=== PATIENT | female | born 1965 | race Two or more races ===

== ENCOUNTER 2020-12-19 05:01 | Emergency (ER) | payer OTHER ==
[~2020-12-19] VITALS: Ht 160 cm; Wt 72.6 kg
[~2020-12-19 05:01] MED LIST: SYNTHROID50 MCG
[2020-12-19] MEDS ORDERED: DICLOFENAC SODI75 MG PO (06:10)
== END 2020-12-19 06:25 | disposition home or self-care (01) ==
LOC: ER 05:01
DX: R07.9 Chest pain, unspecified (principal); M94.0 Chondrocostal junction syndrome [Tietze]

== ENCOUNTER 2022-06-13 05:15 | Emergency (ER) | payer OTHER ==
[~2022-06-13] VITALS: Ht 160 cm; Wt 72.6 kg
[~2022-06-13 05:15] MED LIST changes: +DICLOFENAC SODI75 MG PO
[2022-06-13] MEDS ORDERED: AMLODIPINE BESYL5 MG PO (05:24)
[2022-06-13] MEDS ORDERED: METOPROLOL SUCC50 MG PO (05:24)
[2022-06-13] MEDS ORDERED: SIMVASTATIN20 MG PO (05:24)
[2022-06-13] MEDS ORDERED: METFORMIN HCL500 M1 PO (05:24)
[2022-06-13] MEDS ORDERED: IRBESARTAN300 MG PO (05:25)
== END 2022-06-13 12:54 | disposition home or self-care (01) ==
LOC: ER 05:15
DX: R10.9 Unspecified abdominal pain (principal); R11.10 Vomiting, unspecified; I10 Essential (primary) hypertension; E11.9 Type 2 diabetes mellitus without complications; R42 Dizziness and giddiness

== ENCOUNTER 2023-10-24 06:44 | Emergency (ER) | payer OTHER ==
[~2023-10-24] VITALS: Ht 160 cm; Wt 71.7 kg
[~2023-10-24 06:44] MED LIST changes: +AMLODIPINE BESYL5 MG PO; +IRBESARTAN300 MG PO; +METFORMIN HCL500 M1 PO; +METOPROLOL SUCC50 MG PO; +SIMVASTATIN20 MG PO
[2023-10-24] MEDS ORDERED: PROMETHAZINE HCL 50 MG/ML AMPUL IM STA (07:41)
[2023-10-24] MEDS ORDERED: 0.9 % SODIUM CHLORIDE 500 ML IV ONE (07:45)
[2023-10-24 08:08] LABS: HEMATOCRIT 37.6 % (36.0-45.00); HEMOGLOBIN 12.4 g/dL (12.0-15.00); MEAN CELL VOLUME 76.5 fL (80.00-100.00); MEAN CORPUSCULAR HEMOGLOBIN 25.2 pg (27.00-32.0); MEAN CORPUSCULAR HGB CONC 32.9 g/dl (32.0-36.0); PLATELET COUNT 167 K/uL (150-450); RED BLOOD COUNT 4.92 M/uL (4.00-6.00); RED CELL DISTRIBUTION WIDTH 13.3 % (11.5-14.5)
[2023-10-24 08:41] LABS: CALCIUM 9.4 mg/dL (8.5-10.1); CREATININE SERUM 0.7 mg/dL (0.55-1.02); GFR 85.65; POTASSIUM 3.36 mEq/L (3.5-5.1)
[2023-10-24 11:03] LABS: PH,URINE 7.5 (5.0-8.0); URINE APPEARANCE Clear; URINE BILIRRUBIN Negative (NEGATIVE); URINE BLOOD Negative; URINE COLOR Yellow; URINE GLUCOSE Negative (NEGATIVE); URINE LEUKOCYTE Trace; URINE NITRATE Negative; URINE PROTEIN Negative (NEGATIVE); URINE UROBILINOGEN 0.2 E.U./dl
[2023-10-24 11:07] LABS: URINE BACTERIA 180.1 uL (0.0-1933); URINE EPITHELIAL CELLS 20.2 uL (0.0-38.8); URINE RBC 2.5 uL (0.0-20.8); URINE WBC 13.4 uL (0.0-23.2)
== END 2023-10-24 11:13 | disposition home or self-care (01) ==
LOC: ER 06:44
PROVIDERS: General Practice
DX: R42 Dizziness and giddiness (principal)